=== PATIENT | female | born 1990 | race African-American/Black ===

== ENCOUNTER 2016-09-18 11:33 | Emergency (ER) | payer MEDICAID ==
[2016-09-18 11:37] VITALS: BP 136/94; BMI 47.1
--- NOTE | 2016-09-18 12:12 | DR.GENAD ---
HPI - PCP Primary Care Physician: nfd - HPI Comment HPI Comment: GETTING WORSE. NO N/V. NO DYSURIA. - Complaint/Symptoms Chief Complaint Doctors Comments: VAGINAL BLEEDING AND ABDOMINAL PAIN. Chief Complaint:: patient stated the clinic told her she as about 4 to 5 weeks . patient stated she has beem cramping and bleeding. - Nurses notes reviewed Nurses Notes Review: Yes - Source History Provided: Patient - Mode of Arrival Mode of Arrival: Ambulatory - Timing Onset of Chief Complaint: 09/17/16 Came on: Suddenly - Duration Duration: Constant Duration: Days - Severity Severity: Moderate PMH - PMH Past Medical History: No Past Surgical History: Yes Surgical History: ALTERATION TAILOR Surgery - Family History History of Family Medical Conditions: Yes Family Medical History: Diabetes Mellitus, Cancer - Social History Does patient currently use any type of tobacco product: No Have you used tobacco products in the last 12 months: No Type of Tobacco Use: None Does any household member use tobacco: Yes Alcohol Use: None Do you use any recreational Drugs:: No Lives With: Family Lives Where: Home - infectious screening In the last 2 months have you had wt loss of >10#?: NO Have you had fever, night sweats or hemotysis?: No Have you traveled outside the country in the last 6 months?: No Isolation: Standard ROS - Review of Systems Constitutional: No Symptoms Reported Eyes: No Symptoms Reported ENTM: No Symptoms Reported Respiratoy: No Symptoms Reported Cardiovascular: No Symptoms Reported Gastrointestinal/Abdominal: Abdominal Pain Genitourinary: Bleeding Neurological: No Symptoms Reported Musculoskeletal: No Symptoms Reported Integumentary: No Symptoms Reported Hematologic/Lymphatic: No Symptoms Reported Endocrine: No Symptoms Reported All Other Systems: Reviewed and Negative PE - Vital Signs Vitals: Temperature 98.3 F Pulse Rate 90 Respiratory Rate 16 Blood Pressure 136/94 O2 Sat by Pulse Oximetry 100 - General Limitations: No Limitations General Appearance: Alert - Head Head Exam: Normal Inspection - Eyes Eye exam: Normal Appearance - ENT ENT Exam: Normal External Ear Exam External Ear Exam: Normal External Inspection TM/Canal Exam: Bilateral Normal Nose Exam: Normal Nose Exam Mouth Exam: Normal Inspection Throat Exam: Normal Inspection - Neck Neck Exam: Trachea Midline - Chest Chest Inspection: Symmetric Chest Wall Rise - Respiratory Respiratory Exam: Normal Lung Sounds Bilat Respiratory Exam: Bilateral Clear to Auscultation - Cardiovascular Cardiovascular Exam: Regular Rate, Normal Rhythm, Normal Heart Sounds - Abdominal Exam Abdominal Exam: Normal Bowel Sounds, Soft, Tenderness Abdominal Tenderness: RLQ, LLQ, Suprapubic, Moderate - Extremities Extremities Exam: Normal Inspection - Back Back Exam: Normal Inspection - Neurologic Neurological Exam: Alert, Oriented X3 - Psychiatric Psychiatric Exam: Anxious - Skin Skin Exam: Normal Color MDM - Additional Information Additional Information Obtained From: Family - Differential Diagnosis Differential Diagnosis: ABDOMINAL PAIN, THREATENED MISCARRIAGE, VAGINAL BLEEDING Course - Education/Counseling Education/Counseling: Patient, Education Educated On: Diagnosis ROR - Labs Reviewed Laboratory Results Reviewed?: Yes Result Diagrams: 09/18/16 12:15 09/18/16 12:15 Laboratory: WBC 5.2 X10^3/uL (3.6-10.0) 09/18/16 12:15 RBC 3.91 X10^6/uL (3.5-5.4) 09/18/16 12:15 Hgb 11.7 g/dL (12.0-16.0) L 09/18/16 12:15 Hct 34.6 % (36.0-47.0) L 09/18/16 12:15 MCV 88.6 fL (80.0-100.0) 09/18/16 12:15 MCH 29.9 pg (27.0-34.0) 09/18/16 12:15 MCHC 33.8 g/dL (33.0-35.0) 09/18/16 12:15 RDW 13.3 % (11.6-16.5) 09/18/16 12:15 Plt Count 285 X10^3/uL (150.0-450.0) 09/18/16 12:15 MPV 7.8 fL (7.4-11.0) 09/18/16 12:15 Neut % 53.9 % (42.0-75.0) 09/18/16 12:15 Lymph % 34.7 % (21.0-51.0) 09/18/16 12:15 [place] % 9.1 % (0.0-13.0) 09/18/16 12:15 Eos % 1.1 % (0.9-2.9) 09/18/16 12:15 Baso % 1.2 % (0.2-1.0) H 09/18/16 12:15 Neut # 2.8 x10^3/uL (2.2-4.8) 09/18/16 12:15 Lymph # 1.8 X10^3/uL (1.3-2.9) 09/18/16 12:15 [place] # 0.5 x10^3/uL (0.3-0.8) 09/18/16 12:15 Eos # 0.1 x10^3/uL (0.0-0.2) 09/18/16 12:15 Baso # 0.1 X10^3/uL (0.0-0.1) 09/18/16 12:15 Absolute Nucleated RBC 0.0 /100WBC 09/18/16 12:15 Sodium 138 mmol/L (136-145) 09/18/16 12:15 Corrected Sodium TNP 09/18/16 12:15 Potassium 3.6 mmol/L (3.5-5.1) 09/18/16 12:15 Chloride 103 mmol/L (98-107) 09/18/16 12:15 Carbon Dioxide 26.3 mmol/L (21-32) 09/18/16 12:15 BUN 11 mg/dL (7-18) 09/18/16 12:15 Creatinine 0.78 mg/dL (0.55-1.02) 09/18/16 12:15 Est GFR (MDRD) Af Amer > 60 (>60) 09/18/16 12:15 Est GFR (MDRD) Non-Af > 60 (>60) 09/18/16 12:15 Glucose 98 mg/dL (65-99) 09/18/16 12:15 Calcium 9.1 mg/dL (8.5-10.1) 09/18/16 12:15 Corrected Calcium TNP 09/18/16 12:15 Total Bilirubin 0.30 mg/dL (0.2-1.0) 09/18/16 12:15 AST 30 Units/L (15-37) 09/18/16 12:15 ALT 50 Units/L (12-78) 09/18/16 12:15 Alkaline Phosphatase 56 Units/L (46-116) 09/18/16 12:15 Total Protein 8.1 g/dL (6.4-8.2) 09/18/16 12:15 Albumin 3.6 g/dL (3.4-5.0) 09/18/16 12:15 Globulin 4.5 g/dL (2.5-4.5) 09/18/16 12:15 Albumin/Globulin Ratio 0.8 Ratio (1.1-2.1) L 09/18/16 12:15 HCG, Qual Positive >10 mIU/mL 09/18/16 12:15 HCG, Quant 125 mIU/mL (0-6) H 09/18/16 12:15 Specimen Type Clean catch urine 09/18/16 11:58 Urine Color Yellow (YELLOW) 09/18/16 11:58 Urine Appearance Clear (CLEAR) 09/18/16 11:58 Urine pH 6.0 (5.0 - 8.0) 09/18/16 11:58 Ur Specific [place] 1.015 (1.000-1.030) 09/18/16 11:58 Urine Protein 1+ (NEGATIVE) 09/18/16 11:58 Urine Glucose (UA) Negative (NEGATIVE) 09/18/16 11:58 Urine Ketones Negative (NEGATIVE) 09/18/16 11:58 Urine Occult Blood 1+ (NEGATIVE) 09/18/16 11:58 Urine Nitrite Negative (NEGATIVE) 09/18/16 11:58 Urine Bilirubin Negative (NEGATIVE) 09/18/16 11:58 Urine Urobilinogen Normal (NORMAL) 09/18/16 11:58 Ur Leukocyte Esterase 1+ (NEGATIVE) 09/18/16 11:58 Urine RBC 0-2 /HPF (NEGATIVE) 09/18/16 11:58 Urine WBC 0-2 /HPF (NEGATIVE) 09/18/16 11:58 Ur Squamous Epith Cells Few /HPF (NEGATIVE) 09/18/16 11:58 Urine Bacteria Negative /HPF (NEGATIVE) 09/18/16 11:58 Ur Culture Indicated? No/not ordered 09/18/16 11:58 Blood Type B POSITIVE 09/18/16 12:15 - XRAY XRAY Interpreted by: Radiologist XRAY Findings: REPORT DISCUSS WITH PATIENT. - Diagnosis Discharge Problem: Vaginal bleeding before 22 weeks gestation, Threatened miscarriage in early - Discharge Plan Disposition: 01 HOME, SELF-CARE Condition: Stable - Follow ups/Referrals Follow ups/Referrals: STACY SHARMA [STAFF PHYSICIAN] - 1 day NFD,None [Primary Care Provider] - 1 day - Instructions Instructions: Vaginal Bleeding During , First Trimester, [id number] , Threatened Miscarriage, [id number], Pelvic Rest Additional Instructions: RETURN TO ED IF WORSE.
[2016-09-18 12:20] LABS: BILIRUBIN,URINE NEGATIVE (NEGATIVE); BLOOD/HEMOGLOBIN,URINE 1+ (NEGATIVE); GLUCOSE, URINE NEGATIVE (NEGATIVE); KETONES,URINE NEGATIVE (NEGATIVE); LEUKOCYTE ESTERASE ,URINE 1+ (NEGATIVE); NITRITES,URINE NEGATIVE (NEGATIVE); PROTEIN,URINE 1+ (NEGATIVE); UROBILINOGEN,URINE NORMAL (NORMAL)
[2016-09-18 12:24] LABS: BASOPHILS # (AUTO) 0.1 X10^3/uL (0.0-0.1); BASOPHILS % (AUTO) 1.2 % (0.2-1.0); EOSINOPHILS # (AUTO) 0.1 x10^3/uL (0.0-0.2); EOSINOPHILS % (AUTO) 1.1 % (0.9-2.9); HEMATOCRIT 34.6 % (36.0-47.0); HEMOGLOBIN 11.7 g/dL (12.0-16.0); LYMPHOCYTES # (AUTO) 1.8 X10^3/uL (1.3-2.9); LYMPHOCYTES % (AUTO) 34.7 % (21.0-51.0); MEAN CORPUSCULAR HEMOGLOBIN 29.9 pg (27.0-34.0); MEAN CORPUSCULAR HGB CONC 33.8 g/dL (33.0-35.0); MEAN CORPUSCULAR VOLUME 88.6 fL (80.0-100.0); MEAN PLATELET VOLUME 7.8 fL (7.4-11.0); MONOCYTES # (AUTO) 0.5 x10^3/uL (0.3-0.8); MONOCYTES % (AUTO) 9.1 % (0.0-13.0); NEUTROPHILS # (AUTO) 2.8 x10^3/uL (2.2-4.8); NEUTROPHILS % (AUTO) 53.9 % (42.0-75.0); PLATELET COUNT 285 X10^3/uL (150.0-450.0); RED BLOOD COUNT 3.91 X10^6/uL (3.5-5.4); RED CELL DISTRIBUTION WIDTH 13.3 % (11.6-16.5); WHITE BLOOD COUNT 5.2 X10^3/uL (3.6-10.0)
[2016-09-18 12:29] LABS: APPEARANCE,URINE CLEAR (CLEAR); BACTERIA,URINE NEGATIVE /HPF (NEGATIVE); COLOR,URINE YELLOW (YELLOW); RBC,URINE 0-2 /HPF (NEGATIVE); SQUAMOUS EPITHELIAL CELL,UR FEW /HPF (NEGATIVE)
[2016-09-18 12:38] LABS: ALANINE AMINOTRANSFERASE 50 Units/L (12-78); ALBUMIN 3.6 g/dL (3.4-5.0); ALKALINE PHOSPHATASE 56 Units/L (46-116); ASPARTATE AMINO TRANSFERASE 30 Units/L (15-37); BLOOD UREA NITROGEN 11 mg/dL (7-18); CALCIUM 9.1 mg/dL (8.5-10.1); CARBON DIOXIDE 26.3 mmol/L (21-32); CHLORIDE 103 mmol/L (98-107); CREATININE 0.78 mg/dL (0.55-1.02); GLUCOSE 98 mg/dL (65-99); SODIUM 138 mmol/L (136-145); TOTAL PROTEIN 8.1 g/dL (6.4-8.2); eGFR BLACK RACES > 60 (>60); eGFR NON BLACK RACES > 60 (>60)
[2016-09-18 12:47] LABS: SERUM PREGNANCY TEST, QUAL POSITIVE >10 mIU/mL
--- NOTE | 2016-09-18 14:55 | US ---
HISTORY: Vaginal bleeding Study: Early OB sonogram Comparison: None Technique: Multiple grayscale sonographic images were obtained. Findings: The uterus measured 8.4 by 5.7 centimeters. Endometrial thickness was slightly prominent at 12.4 mil limeters. No intrauterine gestation is identified. The right ovary measured 3.7 x 2.4 x 3.1 centimet ers the left ovary measured 3.1 x 2.7 x 2.6 centimeters. Small simple ovarian cysts in the 2 centime ters size range are present bilaterally. No adnexal masses are identified. No free fluid is noted in the cul de sac. If this patient has a positive test, the differential diagnosis would be between very early not yet visible intrauterine gestation, missed , and nonvisualized ectopi c . Close clinical, serologic, and sonographic follow up is recommended. IMPRESSION: No evidence for visible intra or extrauterine gestation. Differential diagnosis and recommendations as above Reported By:
== END 2016-09-18 15:09 | disposition home or self-care (01) ==
LOC: ER 11:33
DX: O20.0 Threatened abortion (principal); O20.8 Other hemorrhage in early pregnancy
CPT/HCPCS: 36415; 76801; 80053; 81001; 84702; 84703; 85025; 86900; 86901; 99283; 99284

== ENCOUNTER 2016-10-10 05:52 | Emergency (ER) | payer MEDICAID, OTHER ==
[2016-10-10 06:03] VITALS: BP 170/97; BMI 49.3
[2016-10-10 06:40] LABS: BILIRUBIN,URINE NEGATIVE (NEGATIVE); BLOOD/HEMOGLOBIN,URINE 1+ (NEGATIVE); GLUCOSE, URINE NEGATIVE (NEGATIVE); KETONES,URINE NEGATIVE (NEGATIVE); LEUKOCYTE ESTERASE ,URINE NEGATIVE (NEGATIVE); NITRITES,URINE NEGATIVE (NEGATIVE); PROTEIN,URINE 1+ (NEGATIVE); UROBILINOGEN,URINE NORMAL (NORMAL)
[2016-10-10 06:57] LABS: AMORPHOUS SEDIMENT,UR 1+ /HPF (NEGATIVE); APPEARANCE,URINE SLIGHTLY HAZY (CLEAR); BACTERIA,URINE TRACE /HPF (NEGATIVE); COLOR,URINE YELLOW (YELLOW); MUCUS,URINE FEW /HPF (NEGATIVE); SQUAMOUS EPITHELIAL CELL,UR MODERATE /HPF (NEGATIVE)
--- NOTE | 2016-10-10 06:58 | DR.GENAD ---
HPI - PCP Primary Care Physician: NFD - Complaint/Symptoms Chief Complaint Doctors Comments: Patient works at the [employer] and walks twelve hours daily resulting in her feet hurting. She admits to painful feet. hurting to the point not being able to sleep. She has been working at the [employer] for one year. Chief Complaint:: NUMBNESS IN HANDS AND FEET, LEFT SIDE - Source History Provided: Patient - Mode of Arrival Mode of Arrival: Ambulatory - Timing Onset of Chief Complaint: 10/09/16 PMH - PMH Past Medical History: Yes Past Medical History: Hypertension Past Surgical History: Yes Surgical History: - Family History History of Family Medical Conditions: Yes Family Medical History: Diabetes Mellitus, Hypertension - Social History Does patient currently use any type of tobacco product: No Have you used tobacco products in the last 12 months: No Type of Tobacco Use: None Does any household member use tobacco: No Alcohol Use: None Do you use any recreational Drugs:: No Lives With: Family Lives Where: Home - infectious screening In the last 2 months have you had wt loss of >10#?: NO Have you had fever, night sweats or hemotysis?: No Have you traveled outside the country in the last 6 months?: No Isolation: Standard ROS - Review of Systems Eyes: No Symptoms Reported ENTM: No Symptoms Reported Respiratoy: No Symptoms Reported Cardiovascular: No Symptoms Reported Gastrointestinal/Abdominal: No Symptoms Reported Genitourinary: No Symptoms Reported Neurological: No Symptoms Reported Musculoskeletal: Foot (Hurting on plantar surface of feet) Integumentary: No Symptoms Reported Hematologic/Lymphatic: No Symptoms Reported Endocrine: No Symptoms Reported, Increased Hunger All Other Systems: Reviewed and Negative PE - Vital Signs Vitals: Temperature 97.8 F Pulse Rate 96 Respiratory Rate 16 Blood Pressure 170/97 O2 Sat by Pulse Oximetry 98 - General General Appearance: Alert - Head Head Exam: Normal Inspection, Atraumatic - Eyes Eye exam: Normal Appearance, PERRL, EOMI - Neck Neck Exam: Normal Inspection, Full ROM - Chest Chest Inspection: Normal Inspection, Symmetric Chest Wall Rise - Respiratory Respiratory Exam: Normal Lung Sounds Bilat, Accessory Muscle Use, Chest Wall Tenderness Respiratory Exam: Bilateral Clear to Auscultation - Cardiovascular Cardiovascular Exam: Regular Rate, Normal Rhythm - Abdominal Exam Abdominal Exam: Normal Inspection, Normal Bowel Sounds Abdominal Tenderness: negative: RUQ, RLQ, LUQ, LLQ, Epigastrium, Suprapubic, Diffuse, Mild, Moderate, Severe, Other - Extremities Extremities Exam: Normal Inspection, Full ROM, Other (bilateral feet pain plantar surface) - Back Back Exam: Normal Inspection, Full ROM - Neurologic Neurological Exam: Alert, Oriented X3, CN II-XII Intact - Psychiatric Psychiatric Exam: Normal Affect, Normal Mood, Depressed - Skin Skin Exam: Warm, Dry, Normal Color - Diagnosis Discharge Problem: Plantar fasciitis - Discharge Plan Condition: Stable - Follow ups/Referrals Follow ups/Referrals: NFD,None [Primary Care Provider] - 3 days - Instructions
== END 2016-10-10 07:07 | disposition home or self-care (01) ==
LOC: ER 05:52
DX: M72.2 Plantar fascial fibromatosis (principal)
CPT/HCPCS: 81001; 99281; 99282

== ENCOUNTER 2017-05-11 08:57 | Emergency (ER) | payer OTHER ==
[2017-05-11 09:02] VITALS: BP 167/88; BMI 49.4
--- NOTE | 2017-05-11 09:27 | DR.GENAD ---
HPI - PCP Primary Care Physician: SUMAN - HPI Comment HPI Comment: HISTORY BELOW. - Complaint/Symptoms Chief Complaint Doctors Comments: COUGH, COLD CONGESTION TIMES ONE WEEK. 9M . EDC 05/18/2017. SHE DENIES ABDOMINAL PAIN OR VAGINAL DISCHARGE OR BLEEDING. NO FEVER. Chief Complaint:: PT. C/O SORE THROAT, SINUS CONGESTION, AND COUGH X 7 DAYS. SHE STATES WHEN SHE VOMITS SHE SEEN SOME BLOOD TINGED EMESIS. PT. IS 9 MONTHS . DENIES ANY C/O. - Nurses notes reviewed Nurses Notes Review: Yes - Source History Provided: Patient - Mode of Arrival Mode of Arrival: Ambulatory - Timing Onset of Chief Complaint: 05/04/17 Came on: Suddenly - Duration Duration: Constant Duration: Days PMH - PMH Past Medical History: Yes Past Medical History: Diabetes, Hypertension Past Surgical History: Yes Surgical History: - Family History History of Family Medical Conditions: Yes Family Medical History: Diabetes Mellitus, Hypertension - Social History Does patient currently use any type of tobacco product: No Have you used tobacco products in the last 12 months: No Type of Tobacco Use: None Does any household member use tobacco: No Alcohol Use: None Do you use any recreational Drugs:: No Lives With: Family Lives Where: Home - infectious screening In the last 2 months have you had wt loss of >10#?: NO Have you had fever, night sweats or hemotysis?: No Have you traveled outside the country in the last 6 months?: No Isolation: Standard ROS - Review of Systems Constitutional: No Symptoms Reported Eyes: No Symptoms Reported ENTM: Nose Discharge, Nose Congestion, Throat Pain Respiratoy: Productive Cough Cardiovascular: No Symptoms Reported Gastrointestinal/Abdominal: No Symptoms Reported Genitourinary: No Symptoms Reported Neurological: Headache Musculoskeletal: Muscle Pain Integumentary: Other (ABSCESS LOWER STERNUM) Hematologic/Lymphatic: No Symptoms Reported Endocrine: No Symptoms Reported All Other Systems: Reviewed and Negative PE - Vital Signs Vitals: Temperature 98.2 F Pulse Rate 100 Respiratory Rate 20 Blood Pressure 167/88 O2 Sat by Pulse Oximetry 97 - General Limitations: No Limitations General Appearance: In No Apparent Distress - Head Head Exam: Normal Inspection - Eyes Eye exam: Normal Appearance - ENT ENT Exam: Normal External Ear Exam External Ear Exam: Normal External Inspection TM/Canal Exam: Bilateral Normal Nose Exam: Normal Nose Exam Mouth Exam: Normal Inspection Throat Exam: Tonsillar Erythema - Neck Neck Exam: Trachea Midline - Chest Chest Inspection: Symmetric Chest Wall Rise - Respiratory Respiratory Exam: Normal Lung Sounds Bilat Respiratory Exam: Bilateral Clear to Auscultation - Cardiovascular Cardiovascular Exam: Regular Rate, Normal Rhythm, Normal Heart Sounds - Abdominal Exam Abdominal Exam: Normal Bowel Sounds, Soft, Other (UTERINE FUNDUS BELOW XYPHOID PROCESS.). negative: Tenderness - Extremities Extremities Exam: negative: Edema - Back Back Exam: Normal Inspection - Neurologic Neurological Exam: Alert, Oriented X3 - Psychiatric Psychiatric Exam: Normal Affect, Normal Mood - Skin Skin Exam: Normal Color MDM - Differential Diagnosis Differential Diagnosis: URI, UTI, BRONCHITIS, STREP THROAT, FLU Course - Treatment Treatment: SEE ORDERS. - Consultation Consultation Comments: DR. RENEE OFFICE VIA HIS NURSE CONTACTED. THEY WILL FOLLOW PATIENT UP IN THE OFFICE. - Education/Counseling Education/Counseling: Patient, Education Educated On: Diagnosis, Needs for Follow Up ROR - Labs Reviewed Laboratory Results Reviewed?: Yes Result Diagrams: 05/11/17 10:30 05/11/17 10:30 Laboratory: WBC 5.7 X10^3/uL (3.6-10.0) 05/11/17 10:30 RBC 3.60 X10^6/uL (3.5-5.4) 05/11/17 10:30 Hgb 10.1 g/dL (12.0-16.0) L 05/11/17 10:30 Hct 30.5 % (36.0-47.0) L 05/11/17 10:30 MCV 84.8 fL (80.0-100.0) 05/11/17 10:30 MCH 28.1 pg (27.0-34.0) 05/11/17 10:30 MCHC 33.2 g/dL (33.0-35.0) 05/11/17 10:30 RDW 15.4 % (11.6-16.5) 05/11/17 10:30 Plt Count 300 X10^3/uL (150.0-450.0) 05/11/17 10:30 MPV 8.1 fL (7.4-11.0) 05/11/17 10:30 Neut % 68.7 % (42.0-75.0) 05/11/17 10:30 Lymph % 20.0 % (21.0-51.0) L 05/11/17 10:30 [place] % 9.8 % (0.0-13.0) 05/11/17 10:30 Eos % 1.2 % (0.9-2.9) 05/11/17 10:30 Baso % 0.3 % (0.2-1.0) 05/11/17 10:30 Neut # 3.9 x10^3/uL (2.2-4.8) 05/11/17 10:30 Lymph # 1.1 X10^3/uL (1.3-2.9) L 05/11/17 10:30 [place] # 0.6 x10^3/uL (0.3-0.8) 05/11/17 10:30 Eos # 0.1 x10^3/uL (0.0-0.2) 05/11/17 10:30 Baso # 0.0 X10^3/uL (0.0-0.1) 05/11/17 10:30 Absolute Nucleated RBC 0.0 /100WBC 05/11/17 10:30 Sodium 140 mmol/L (136-145) 05/11/17 10:30 Corrected Sodium TNP 05/11/17 10:30 Potassium 3.1 mmol/L (3.5-5.1) L 05/11/17 10:30 Chloride 104 mmol/L (98-107) 05/11/17 10:30 Carbon Dioxide 25.4 mmol/L (21-32) 05/11/17 10:30 BUN 4 mg/dL (7-18) L 05/11/17 10:30 Creatinine 0.55 mg/dL (0.55-1.02) 05/11/17 10:30 Est GFR (MDRD) Af Amer > 60 (>60) 05/11/17 10:30 Est GFR (MDRD) Non-Af > 60 (>60) 05/11/17 10:30 Glucose 89 mg/dL (65-99) 05/11/17 10:30 Calcium 8.2 mg/dL (8.5-10.1) L 05/11/17 10:30 Corrected Calcium 9.4 mg/dL (8.5-10.1) 05/11/17 10:30 Total Bilirubin 0.30 mg/dL (0.2-1.0) 05/11/17 10:30 AST 26 Units/L (15-37) 05/11/17 10:30 ALT 24 Units/L (12-78) 05/11/17 10:30 Alkaline Phosphatase 91 Units/L (46-116) 05/11/17 10:30 Total Protein 6.8 g/dL (6.4-8.2) 05/11/17 10:30 Albumin 2.5 g/dL (3.4-5.0) L 05/11/17 10:30 Globulin 4.3 g/dL (2.5-4.5) 05/11/17 10:30 Albumin/Globulin Ratio 0.6 Ratio (1.1-2.1) L 05/11/17 10:30 Specimen Type Random urine 05/11/17 09:14 Urine Color Yellow (YELLOW) 05/11/17 09:14 Urine Appearance Cloudy (CLEAR) 05/11/17 09:14 Urine pH 7.0 (5.0 - 8.0) 05/11/17 09:14 Ur Specific [place] 1.015 (1.000-1.030) 05/11/17 09:14 Urine Protein 3+ (NEGATIVE) 05/11/17 09:14 Urine Glucose (UA) Negative (NEGATIVE) 05/11/17 09:14 Urine Ketones Negative (NEGATIVE) 05/11/17 09:14 Urine Occult Blood 3+ (NEGATIVE) 05/11/17 09:14 Urine Nitrite Negative (NEGATIVE) 05/11/17 09:14 Urine Bilirubin Negative (NEGATIVE) 05/11/17 09:14 Urine Urobilinogen 2+ (NORMAL) 05/11/17 09:14 Ur Leukocyte Esterase 3+ (NEGATIVE) 05/11/17 09:14 Urine RBC 5-10 /HPF (NEGATIVE) 05/11/17 09:14 Urine WBC Tntc /HPF (NEGATIVE) 05/11/17 09:14 Ur Squamous Epith Cells Many /HPF (NEGATIVE) 05/11/17 09:14 Urine Bacteria 1+ /HPF (NEGATIVE) 05/11/17 09:14 Ur Culture Indicated? No/not indicated 05/11/17 09:14 Acetone, Semi-Quant Negative (NEGATIVE) 05/11/17 10:16 Influenza Type A (PCR) Negative (NEGATIVE) 05/11/17 09:14 Influenza Type B (PCR) Negative (NEGATIVE) 05/11/17 09:14 Streptococcus Screen Negative (NEGATIVE) 05/11/17 09:14 - Diagnosis Discharge Problem: URI (upper respiratory infection) Qualifiers: URI type: unspecified URI Qualified Code(s): J06.9 - Acute upper respiratory infection, unspecified UTI (urinary tract infection) Qualifiers: Urinary tract infection type: site unspecified Hematuria presence: with hematuria Qualified Code(s): N39.0 - Urinary tract infection, site not specified Gestational diabetes Qualifiers: Gestational diabetes mellitus control: insulin-controlled Trimester: second trimester Qualified Code(s): O24.414 - Gestational diabetes mellitus in , insulin controlled Hypertension Qualifiers: Hypertension type: essential hypertension Qualified Code(s): I10 - Essential ( primary) hypertension - Discharge Plan Condition: Stable Prescriptions: Nitrofurantoin Macro [Macrobid Cap 100 mg Ext Rel] 100 mg PO BID #14 cap - Follow ups/Referrals Follow ups/Referrals: Dionicio Renee [Primary Care Provider] - 3 days - Instructions Instructions: Urinary Tract Infection, Adult, [id number], Upper Respiratory Infection, Adult, [id number], and Urinary Tract Infection Additional Instructions: RETURN TO ED IF WORSE. CONTINUE WITH BACTROBAN
[2017-05-11 09:36] LABS: BILIRUBIN,URINE NEGATIVE (NEGATIVE); BLOOD/HEMOGLOBIN,URINE 3+ (NEGATIVE); GLUCOSE, URINE NEGATIVE (NEGATIVE); KETONES,URINE NEGATIVE (NEGATIVE); LEUKOCYTE ESTERASE ,URINE 3+ (NEGATIVE); NITRITES,URINE NEGATIVE (NEGATIVE); PROTEIN,URINE 3+ (NEGATIVE); UROBILINOGEN,URINE 2+ (NORMAL)
[2017-05-11 09:52] LABS: APPEARANCE,URINE CLOUDY (CLEAR); COLOR,URINE YELLOW (YELLOW)
[2017-05-11 09:53] LABS: BACTERIA,URINE 1+ /HPF (NEGATIVE); SQUAMOUS EPITHELIAL CELL,UR MANY /HPF (NEGATIVE)
[2017-05-11] MEDS ORDERED: ROCEPHIN VIAL 1 GM IM ONE (10:10)
[2017-05-11] MEDS ORDERED: NORMODYNE TAB 200 MG PO ONE (10:23)
[2017-05-11] MEDS ORDERED: NORMODYNE TAB 100 MG ONE (10:25)
[2017-05-11] MEDS ORDERED: ROCEPHIN VIAL 1 GM ONE (10:25)
[2017-05-11] MEDS ORDERED: XYLOCAINE 1 % (PLAIN) ONE (10:29)
[2017-05-11 10:43] LABS: BASOPHILS % (AUTO) 0.3 % (0.2-1.0); EOSINOPHILS # (AUTO) 0.1 x10^3/uL (0.0-0.2); EOSINOPHILS % (AUTO) 1.2 % (0.9-2.9); HEMATOCRIT 30.5 % (36.0-47.0); HEMOGLOBIN 10.1 g/dL (12.0-16.0); LYMPHOCYTES # (AUTO) 1.1 X10^3/uL (1.3-2.9); MEAN CORPUSCULAR HEMOGLOBIN 28.1 pg (27.0-34.0); MEAN CORPUSCULAR HGB CONC 33.2 g/dL (33.0-35.0); MEAN CORPUSCULAR VOLUME 84.8 fL (80.0-100.0); MEAN PLATELET VOLUME 8.1 fL (7.4-11.0); MONOCYTES # (AUTO) 0.6 x10^3/uL (0.3-0.8); MONOCYTES % (AUTO) 9.8 % (0.0-13.0); NEUTROPHILS # (AUTO) 3.9 x10^3/uL (2.2-4.8); NEUTROPHILS % (AUTO) 68.7 % (42.0-75.0); PLATELET COUNT 300 X10^3/uL (150.0-450.0); RED CELL DISTRIBUTION WIDTH 15.4 % (11.6-16.5); WHITE BLOOD COUNT 5.7 X10^3/uL (3.6-10.0)
[2017-05-11 11:01] LABS: ALANINE AMINOTRANSFERASE 24 Units/L (12-78); ALBUMIN 2.5 g/dL (3.4-5.0); ALKALINE PHOSPHATASE 91 Units/L (46-116); ASPARTATE AMINO TRANSFERASE 26 Units/L (15-37); BLOOD UREA NITROGEN 4 mg/dL (7-18); CALCIUM 8.2 mg/dL (8.5-10.1); CARBON DIOXIDE 25.4 mmol/L (21-32); CHLORIDE 104 mmol/L (98-107); COR CA(FOR HYPOALB) 9.4 mg/dL (8.5-10.1); CREATININE 0.55 mg/dL (0.55-1.02); SODIUM 140 mmol/L (136-145); TOTAL PROTEIN 6.8 g/dL (6.4-8.2); eGFR BLACK RACES > 60 (>60); eGFR NON BLACK RACES > 60 (>60)
[2017-05-11] MEDS ORDERED: K-LYTE EFFERVESCENT PO ONE (11:20)
[2017-05-11] MEDS ORDERED: K-LYTE EFFERVESCENT ONE (11:24)
== END 2017-05-11 11:35 | disposition home or self-care (01) ==
LOC: ER 09:06
DX: N39.0 Urinary tract infection, site not specified (principal); J06.9 Acute upper respiratory infection, unspecified; O24.414 Gestational diabetes mellitus in pregnancy, insulin controlled; I10 Essential (primary) hypertension; Z3A.00 Weeks of gestation of pregnancy not specified
CPT/HCPCS: 36415; 80053; 81001; 82009; 85025; 87070; 87502; 87880; 96372; 99282; 99284; J0696; J2001